=== PATIENT | male | born 1975 | race Caucasian/White ===

== ENCOUNTER 2018-05-07 03:16 | Emergency (ER) | payer OTHER, SELFPAY ==
[2018-05-07 03:17] VITALS: BP 154/94; PULSE 83; RESP 16; TEMP 36.6; O2SAT 94; BMI 29.7
--- NOTE | 2018-05-07 03:45 | EKG12_ITS ---
Test Reason : NUMBNESS/TINGLING Blood Pressure : / mmHG Vent. Rate : 077 BPM Atrial Rate : 077 BPM P-R Int : 146 ms QRS Dur : 094 ms QT Int : 404 ms P-R-T Axes : 056 028 027 degrees QTc Int : 457 ms Normal sinus rhythm Normal ECG Confirmed by KIM WHITTAKER, BALJEET ([id number]), editor newspaper JUANIS MICHAELS ([id number]) on 05/08/2018 4:28:20 PM Referred By: JOHN Confirmed By:BALJEET ALVAREZ MD
--- NOTE | 2018-05-07 03:48 | ED.RN ---
NO OLD EKGS IN MUSE
[2018-05-07 04:09] LABS: Absolute Lymphocyte Count 2.08 X10^3/ul (0.83-4.51); Absolute Neutrophil Count 3.8 X10^3/uL (2.0-7.7); Basophil# 0.03 X10^3/uL; Basophil% 0.5 % (0-1); Eosinophil# 0.12 X10^3/uL; Eosinophils% 1.8 % (0-5); Hematocrit 47.2 % (40-54); Hemoglobin 16.4 g/dl (13.0-16.5); Lymphocyte # 2.08 X10^3/ul (4.0); Mean Corp Hgb Conc 34.7 g/gl (32-36); Mean Corpuscular Hgb 28.6 pg (27.0-32.0); Mean Corpuscular Volume 82.4 fL (80-94); Mean Platelet Vol. 9.4 fl (6.2-12.0); Monocyte% 7.7 % (0-10); Neutrophil # 3.76 X10^3/uL (2.7-7.7); Neutrophil % 57.8 % (47-70); Platelet Count 150 K/mm3 (150-450); RBC Distribution Width CV 13.1 % (11.6-14.6); RBC Distribution Width SD 39.3 fl (35.1-43.9); Red Blood Count 5.73 M/mm3 (4.6-6.2); White Blood Count 6.5 K/mm3 (4.4-11.0)
[2018-05-07 04:10] LABS: POSITIVE COUNT NO; POSITIVE DIFFERENTIAL NO; POSITIVE MORPHOLOGY NO
[2018-05-07] MEDS: 0.9% Normal Saline 1,000 ML 1000 ML IV (04:12)
[2018-05-07] MEDS: Ondansetron 4 MG/2 ML Vial IV (04:12)
[2018-05-07 04:19] LABS: Anion Gap 12 (5-15); BUN 18 mg/dL (7-18); BUN/Creat Ratio 20.4 RATIO (10-20); Calcium,Total 8.8 mg/dL (8.5-10.1); Chloride 105 mmol/L (98-107); Creatinine, Serum 0.88 mg/dL (0.70-1.30); EST Glomerular Filtration Rate 101 mL/min (>60); Est Glom Filt Rate - Afr Amer 122 mL/min (>60); Estimated Creatinine Clearance 124.84 ml/min; Glucose 118 mg/dL (74-106); Potassium 3.6 mmol/L (3.5-5.1); Sodium Level 140 mmol/L (136-145)
--- NOTE | 2018-05-07 04:33 | ED.DCSUM_ITS ---
- ER Visit Summary Date of Service: 05/07/18 Chief Complaint: [] Burning sensation full body History of Present Illness: The patient is a 42 M is a full body sensation of burning and this started just prior to arrival. He had a hard time sleeping in his legs feel achy and he took some ibuprofen and felt burning sensation in his body. He restarted his to traveling yesterday. He was off for 2 months. Prior he was on it for 2 years. He is never had symptoms like this before. Physical Examination: [] Vital signs reviewed General: Well-nourished well-developed Head: Normocephalic atraumatic Eyes: Pupils equal round and reactive to light extraocular movements intact ENT: TMs clear no hemotympanum no trauma Neck: Nontender full range of motion Cardiovascular: Regular rate rhythm no murmurs normal S1-S2 Respiratory: No distress clear to auscultation bilaterally chest nontender Abdomen: Soft nontender nondistended normal bowel sounds no masses Back: Nontender no CVA tenderness Extremities: Nontender active range of motion ?4 extremities no trauma Skin: Normal color no trauma Neuro alert oriented cranial nerves II through XII intact normal strength sensation reflexes Test Results: [] Emergency Department Course and Treatment: [] Given IV fluids and a dose of Zofran for nausea. CBC and chemistries normal except glucose 118. EKG shows sinus at 77 without ischemia. Patient felt much better after IV fluids. At this time I think his symptoms are nonspecific. I do not feel he needs further lab work or imaging. We will follow-up as an outpatient if it recurs. Could be restless legs. Treatment Plan: [] Disposition: [] Impression: [] Diffuse body burning sensation This note was generated with [employer] dictation software. It may contain incorrect words, spelling, and punctuation that were not noted in review of the chart prior to signing ED Disposition - Plan for ED Patient: Chief Complaint: Numb/Ting Referrals: Indy Stewart MD [Primary Care Provider] -
--- NOTE | 2018-05-07 04:33 | ED.DEP ---
ED Disposition - Plan for ED Patient: Disposition: Home or Assisted Living Chief Complaint: Numb/Ting Instructions: ED Paraesthesias Referrals: Indy Stewart MD [Primary Care Provider] -
[2018-05-07 04:48] VITALS: RESP 18
== END 2018-05-07 04:53 | disposition home or self-care (01) ==
PROVIDERS: Emergency Provider Emergency Medicine; Family Provider Family Medicine; PCP Family Medicine
DX: R20.8 Other disturbances of skin sensation (principal); R11.0 Nausea; F32.9 Major depressive disorder, single episode, unspecified; Z79.899 Other long term (current) drug therapy
CPT/HCPCS: 80048; 85025; 93005; 96361; 96374; 99282; J7030; A4216; J2405

== ENCOUNTER → 2020-02-12 09:40 | Outpatient (CLI) | payer OTHER, SELFPAY ==
[2020-02-12 12:43] LABS: AST(SGOT) 51 U/L (15-37); Alanine Aminotransfer ALT/SGPT 86 U/L (16-61); Cholesterol 145 mg/dL (200); High Density Lipoprotein 29 mg/dL; Triglycerides 205 mg/dL; Very Low Density Lipoprotein 41 mg/dL (5-40)
== END ==
PROVIDERS: PCP Family Medicine; Referring Provider Family Medicine; Visit Provider Family Medicine
DX: E78.5 Hyperlipidemia, unspecified (principal)
CPT/HCPCS: 36415; 80061; 84450; 84460

== ENCOUNTER → 2021-04-21 | Outpatient (CLI) | payer OTHER, SELFPAY | END | disposition home or self-care (01) | LOC: LABSPEC 16:48 | PROVIDERS: PCP Family Medicine; Referring Provider Physician Assistant; Visit Provider Physician Assistant | DX: U07.1 COVID-19 (principal) | CPT/HCPCS: 87635; U0005; U0003 ==

== ENCOUNTER 2021-04-22 17:45 | Outpatient (CLI) | payer OTHER, SELFPAY ==
[2021-04-22] MEDS: 0.9% Saline Lock 10 ML Syringe IV (17:47)
[2021-04-22 17:48] VITALS: BP 125/82; PULSE 76; RESP 16; TEMP 36.6; O2SAT 97; BMI 30.3
[2021-04-22 18:00] VITALS: BP 124/79; PULSE 77; RESP 16; TEMP 37.1; O2SAT 97
--- NOTE | 2021-04-22 18:00 | NURSING ---
PT C/O OF FEELING FLUSHED. VS TAKEN. STABLE. RATE DECREASED TO 200CC/HR. FLUSHED FEELING RESOLVED IN 2 MINUTES. PT STATES HE FEELS BETTER AT THE SLOWER RATE.
[2021-04-22 18:35] VITALS: BP 123/81; PULSE 77; RESP 16; TEMP 36.8; O2SAT 99
[2021-04-22 19:26] VITALS: BP 117/77; PULSE 75; RESP 16; TEMP 37.1; O2SAT 100
== END 2021-04-22 19:27 | disposition home or self-care (01) ==
LOC: MS3OUT 17:45 → MS3 17:46
PROVIDERS: PCP Family Medicine; Referring Provider Nurse Practitioner Adult Health; Visit Provider Nurse Practitioner Adult Health
DX: Z23 Encounter for immunization (principal); U07.1 COVID-19
CPT/HCPCS: J7050; M0245; Q0245; A4216

== ENCOUNTER → 2021-12-22 | Outpatient (CLI) | payer OTHER, SELFPAY ==
[2021-12-22 18:45] LABS: AST(SGOT) 27 U/L (15-37); Alanine Aminotransfer ALT/SGPT 50 U/L (16-61); Cholesterol 143 mg/dL (200); High Density Lipoprotein 29 mg/dL; Triglycerides 207 mg/dL; Very Low Density Lipoprotein 41 mg/dL (5-40)
== END | disposition home or self-care (01) ==
LOC: MFPLAB 15:15
PROVIDERS: PCP Family Medicine; Referring Provider Family Medicine; Visit Provider Family Medicine
DX: E78.5 Hyperlipidemia, unspecified (principal)
CPT/HCPCS: 36415; 80061; 84450; 84460

== ENCOUNTER → 2023-03-02 | Outpatient (CLI) | payer OTHER, SELFPAY ==
[2023-03-02 15:21] LABS: Absolute Lymphocyte Count 2.34 X10^3/uL (0.83-4.51); Absolute Neutrophil Count 3.6 X10^3/uL (2.0-7.7); Basophil# 0.06 X10^3/uL; Basophil% 0.9 % (0-1); Eosinophils% 1.5 % (0-5); Hematocrit 47.4 % (40-54); Lymphocyte # 2.34 X10^3/ul (0.83-4.51); Lymphocyte % 34.9 % (19-41); Mean Corp Hgb Conc 33.8 g/dL (32-36); Mean Corpuscular Hgb 28.8 pg (27.0-32.0); Mean Corpuscular Volume 85.3 fL (80-94); Monocyte# 0.59 X10^3/uL; Monocyte% 8.8 % (0-10); NRBC Flagged by Analyzer 0 % (0-5); Neutrophil # 3.59 X10^3/uL (2.7-7.7); Neutrophil % 53.6 % (47-70); Platelet Count 196 K/mm3 (150-450); RBC Distribution Width CV 13.5 % (11.6-14.6); RBC Distribution Width SD 41.8 fl (35.1-43.9); Red Blood Count 5.56 M/mm3 (4.6-6.2); White Blood Count 6.7 K/mm3 (4.4-11.0)
[2023-03-02 15:41] LABS: ALB/GLOB Ratio 1.1 RATIO (0.9-2.4); AST(SGOT) 27 U/L (15-37); Alanine Aminotransfer ALT/SGPT 57 U/L (16-61); Albumin, Serum 4.2 g/dL (3.2-5.0); Alkaline Phosphatase 61 U/L (45-117); Anion Gap 5 (5-15); BUN 17 mg/dL (7-18); BUN/Creat Ratio 17.6 RATIO (10-20); Calcium,Total 9.4 mg/dL (8.5-10.1); Chloride 107 mmol/L (98-107); Creatinine, Serum 0.97 mg/dL (0.70-1.30); EST Glomerular Filtration Rate 89 mL/min (>60); Est Glom Filt Rate - Afr Amer 107 mL/min (>60); Globulin 3.7 g/dL (2.2-4.2); Glucose 102 mg/dL (74-106); Potassium 4.1 mmol/L (3.5-5.1); Protein, Total 7.9 g/dL (6.4-8.2); Sodium Level 140 mmol/L (136-145)
== END | disposition home or self-care (01) ==
LOC: MTLAB 12:37
PROVIDERS: PCP Family Medicine; Visit Provider Family Medicine
DX: R10.9 Unspecified abdominal pain (principal)
CPT/HCPCS: 36415; 80053; 85025

== ENCOUNTER → 2023-03-31 | Outpatient (CLI) | payer OTHER, SELFPAY ==
--- NOTE | 2023-03-31 10:53 | US_ITS ---
STUDY: ABDOMINAL ULTRASOUND REASON FOR EXAM: Male, 47 years old. Abdominal pain. TECHNIQUE: Transabdominal ultrasound was performed with real-time and static maria scale imaging. TECHNICAL QUALITY: Adequate. COMPARISON: None. FINDINGS: Liver: The liver measures 9.9 cm. Increased echogenicity of the liver parenchyma due to fatty infiltration. The bile ducts are within normal limits. There is hepatic color flow. The direction of portal flow is hepatopetal. Small hypoechoic lesions in the right thyroid lobe adjacent the gallbladder fossa. They measure 3.4 x 1.4 x 1.7 cm and 2.7 x 2.7 x 1.8 cm. Gallbladder: Normal distended gallbladder. The gallbladder wall measures 0.9 mm. There is a negative sonographic Vivas''s sign. There is no pericholecystic fluid. Minimal GB sludge but no gallstones. Common Bile Duct (C.B.D.): The common bile duct measures 6.4 mm. This tapers to 3.9 cm in diameter. Pancreas: Limited visualization due to overlying bowel gas. Normal size of the visualized portions of pancreas. Increased echogenicity in the visualized portions of the pancreas. No suspicious pancreatic mass or cyst in the visualized portions of the pancreas. The pancreatic duct is not dilated. Spleen: Normal size of the spleen. The spleen measures 12.5 x 5.1 x 5.3 cm. Right Kidney: Normal size of the right kidney. The right kidney measures 13 x 6.4 x 5.7 cm. Normal renal cortex. The right cortex measures 1.2 cm. Small anechoic cyst in the anterior right middle renal parenchyma measuring 1.4 x 1.2 x 0.8 cm. There is no right hydronephrosis. Left Kidney: Normal size of the left kidney. The left kidney measures 12.4 x 5.3 x 4.7 cm. Normal renal cortex. The left cortex measures 1.1 cm. There is no demonstrated renal mass or cyst. There is no left hydronephrosis. Aorta: Proximal aorta is 2.3 x 1.8 cm. Mid aorta is 2.2 x 2 cm. Distal aorta is 1.8 x 1.7 cm. No abdominal aortic aneurysm. I.V.C.: The IVC is patent. There is no ascites. US/Abdomen Complete IMPRESSION: 1. 2 hypoechoic lesions in the right hepatic lobe adjacent the gallbladder measuring 3.4 x 1.4 x 1.7 cm and 2.7 x 2.7 x 1.8 cm. Etiology is unknown at this time. Three-phase CT of the liver will be helpful for further clarification. 2. Small right renal cyst measuring 1.4 x 1.2 x 0.8 cm. 3. Diffuse hepatic steatosis. Electronically Signed: Emmanuel Mace MD at 14:47 EDT ,
== END | disposition home or self-care (01) ==
LOC: US 10:49
PROVIDERS: PCP Family Medicine; Referring Provider Family Medicine; Visit Provider Family Medicine
DX: R10.9 Unspecified abdominal pain (principal)
CPT/HCPCS: 76700

== ENCOUNTER → 2023-04-20 | Outpatient (CLI) | payer OTHER, SELFPAY ==
--- NOTE | 2023-04-20 08:10 | CT_ITS ---
STUDY: CT ABDOMEN WITH AND WITHOUT CONTRAST REASON FOR EXAM: Male, 47 years old. Liver mass seen on recent ultrasound of the right upper quadrant. RADIATION DOSAGE (If Supplied By Facility): CTDIvol = ( 23.55 ) mGy, DLP = ( 3311.81 ) mGycm TECHNIQUE: Transaxial images were obtained pre and post I.V. administration of IV 100mL [id number]-[id number], and oral contrast. Sagittal and coronal images were reconstructed. Individualized dose optimization techniques were used for this CT. COMPARISON: None. FINDINGS: The visualized lung bases are unremarkable. The visualized portions of the heart are within normal limits. There is decreased attenuation of the liver consistent with steatosis. No focal lesion is seen. The findings on the sonogram most likely represent focal areas of fatty sparing. Normal gallbladder and extrahepatic biliary system. Normal spleen. Normal pancreas. Normal bilateral adrenal glands. 1.4 x 1.2 cm cyst in the right kidney. Normal left kidney. Normal visualized stomach. Normal small intestine. Normal colon. The appendix is visualized and appears normal. Normal abdominal aorta. Normal inferior vena cava. Normal retroperitoneum. Minimal increased markings in the mesenteric fat at the level of the root of mesentery. This is a nonspecific finding. There is a small umbilical hernia containing fat. Normal osseous structures. CT/Abdomen W/WO IV Contrast IMPRESSION: Findings diffuse fatty infiltration of the liver with focal areas of fatty sparing most likely corresponding to the ultrasound findings. Electronically Signed: Kaz Bland MD at 15:07 EST ,
== END | disposition home or self-care (01) ==
PROVIDERS: PCP Family Medicine; Referring Provider Family Medicine; Visit Provider Family Medicine
DX: R16.0 Hepatomegaly, not elsewhere classified (principal)
CPT/HCPCS: 74170; Q9967

== ENCOUNTER 2023-06-21 09:47 | Emergency (ER) | payer OTHER, SELFPAY ==
[2023-06-21 09:48] VITALS: BP 149/92; PULSE 83; RESP 18; TEMP 36.1; O2SAT 96; BMI 32.8
[2023-06-21 10:38] LABS: Absolute Lymphocyte Count 1.27 X10^3/uL (0.83-4.51); Absolute Neutrophil Count 8.5 X10^3/uL (2.0-7.7); Basophil# 0.06 X10^3/uL; Basophil% 0.6 % (0-1); Eosinophil# 0.07 X10^3/uL; Eosinophils% 0.6 % (0-5); Hematocrit 50.8 % (40-54); Hemoglobin 16.9 g/dL (13.0-16.5); Lymphocyte # 1.27 X10^3/ul (0.83-4.51); Lymphocyte % 11.8 % (19-41); Mean Corp Hgb Conc 33.3 g/dL (32-36); Mean Corpuscular Hgb 28.3 pg (27.0-32.0); Mean Corpuscular Volume 84.9 fL (80-94); Mean Platelet Vol. 9.6 fl (6.2-12.0); Monocyte# 0.86 X10^3/uL; NRBC Flagged by Analyzer 0 % (0-5); Neutrophil # 8.51 X10^3/uL (2.7-7.7); Neutrophil % 78.7 % (47-70); Platelet Count 183 K/mm3 (150-450); RBC Distribution Width CV 13.2 % (11.6-14.6); RBC Distribution Width SD 40.9 fl (35.1-43.9); Red Blood Count 5.98 M/mm3 (4.6-6.2); White Blood Count 10.8 K/mm3 (4.4-11.0)
[2023-06-21 11:20] LABS: ALB/GLOB Ratio 1.2 RATIO (0.9-2.4); AST(SGOT) 38 U/L (15-37); Alanine Aminotransfer ALT/SGPT 71 U/L (16-61); Albumin, Serum 4.5 g/dL (3.2-5.0); Alkaline Phosphatase 64 U/L (45-117); Anion Gap 4 (5-15); BUN 23 mg/dL (7-18); BUN/Creat Ratio 17.3 RATIO (10-20); Calcium,Total 9.9 mg/dL (8.5-10.1); Chloride 109 mmol/L (98-107); Creatinine, Serum 1.33 mg/dL (0.70-1.30); EST Glomerular Filtration Rate 61 mL/min (>60); Est Glom Filt Rate - Afr Amer 74 mL/min (>60); Estimated Creatinine Clearance 91.44 ml/min; Globulin 3.8 g/dL (2.2-4.2); Glucose 131 mg/dL (74-106); Potassium 4.4 mmol/L (3.5-5.1); Protein, Total 8.3 g/dL (6.4-8.2); Sodium Level 140 mmol/L (136-145)
--- NOTE | 2023-06-21 11:58 | CT_ITS ---
STUDY: CT ABDOMEN AND PELVIS WITHOUT CONTRAST REASON FOR EXAM: Male, 47 years old. Left flank pain and vomiting. RADIATION DOSAGE (If Supplied By Facility): CTDIvol = ( 19.91 ) mGy, DLP = ( 1029.90 ) mGycm TECHNIQUE: Transaxial images were obtained from the dome of the diaphragm to the symphysis pubis without oral contrast, and without intravenous contrast. Sagittal and coronal images were reconstructed. Individualized dose optimization techniques were used for this CT. COMPARISON: Comparison is made with prior study dated April 20, 2023. FINDINGS: The visualized lung bases are unremarkable. The visualized portions of the heart are within normal limits. There is decreased attenuation of the liver consistent with steatosis. Normal gallbladder and extrahepatic biliary system. Normal spleen. Normal pancreas. Normal bilateral adrenal glands. Normal right kidney. Normal left kidney. There is a small hiatal hernia. Normal small intestine. Scattered sigmoid diverticula. The appendix is visualized and appears normal. Normal abdominal aorta. Normal inferior vena cava. Normal retroperitoneum. Stable nonspecific increased markings in the mesenteric fat at the root of the mesentery. The bladder is empty at this time. There is a small umbilical hernia containing fat. Right inguinal hernia containing fat. Normal osseous structures. CT/Abdomen/Pelvis without Cont IMPRESSION: Fatty infiltration of the liver. Electronically Signed: Kaz Bland MD at 13:03 EST ,
--- NOTE | 2023-06-21 11:59 | EX.ED.DYSGE1 ---
HPI History of Present Illness Chief Complaint: Abd Pain Detail of Chief Complaint: Left flank pain Informant: patient Narrative Narrative: Patient presents to the emergency department with left-sided flank pain that started around 6 AM today. Pain was severe. He vomited once. Pain radiates towards his left groin. He thinks he had similar pains in the past and had a CT scan a couple months ago that just showed a fatty liver. Patient denies urinary symptoms. Denies fever. Denies diarrhea. Denies blood in stool or black tarry stool. PFSH PFSH Medical History no medical history Home Medications sertraline 50 mg tablet 100 mg PO DAILY 12/01/14 [History Last Taken Unknown] rosuvastatin 5 mg tablet 5 mg PO DAILY 04/22/21 [History Last Taken Unknown] hydrocodone-acetaminophen 5-325mg 5mg-325mg 1 tab PO Q4H PRN PRN Pain 2 days #10 TABLETS 06/21/23 [Rx Last Taken Unknown] Allergy/AdvReac Type Severity Reaction Status Date / Time No Known Allergies Allergy Verified 06/21/23 12:21 Social History Smoking Status: Never smoker ROS ROS ED Review of Systems ROS Unobtainable: other Constitutional Constitutional ED: Reports lethargy; Denies chills, fever(s), sweats or weight loss Eyes Eyes: Denies blurry vision, change in vision or diplopia ENT ENT ED: Denies rhinorrhea or sore throat Cardiovascular Cardiovascular: Denies chest pain, orthopnea or racing heartbeat Respiratory/Chest Respiratory/Chest: Denies cough, dyspnea, dyspnea on exertion, orthopnea or sputum Gastrointestinal Gastrointestinal: Reports abdominal pain, nausea and vomiting; Denies diarrhea Genitourinary Genitourinary ED: Denies dysuria, hematuria or urinary frequency Musculoskeletal Musculoskeletal: Reports back pain; Denies arthralgias, myalgias or neck pain Integumentary Denies abscess, Abrasions or rash Neurologic Neurologic: Denies headache(s) or weakness Psychiatric Psychiatric: Denies anxiety, depression or suicidal thoughts Endocrine Endocrinology: Denies polydipsia, polyphagia or polyuria Hematologic/Lymphatic Hematologic/Lymphatic: Denies easy bleeding, easy bruising or lymphadenopathy Allergic/Immunologic Allergic/Immunologic ED: Denies mouth swelling, tongue swelling or urticaria EXAM Physical Exam Const Vital Signs: 06/21/23 09:48 Temperature 96.9 F L Temperature Source Temporal Pulse Rate 83 Respiratory Rate 18 Blood Pressure 149/92 H Blood Pressure Mean 111 Pulse Ox 96 Oxygen Delivery Method Room Air Positive well nourished and well developed General Appearance ED: well developed and NAD HEENT Reports TM's clear and moist mucous membranes normocephalic and atraumatic; Negative for trauma or tenderness Tympanic Membrane ED: Yes TM's clear Eyes PERRL and EOMs intact bilaterally General Eye ED: Negative for pale conjunctiva or scleral icterus Neck no lymphadenopathy, supple and no JVD General: Negative for tenderness Chest Wall inspection of chest normal and palpation of chest normal Chest: Negative for tenderness Resp normal respiratory effort and clear to auscultation bilaterally Effort and Inspection: Negative for respiratory distress or pain with movement Auscultation: Negative for rhonchi, wheezes or diminished lung sounds Cardio regular rate, regular rhythm, S1 normal heart sound, S2 normal heart sound and no murmurs Peripheral Pulses: pulses 2+ throughout GI normal to inspection, nondistended, normoactive bowel sounds, soft to palpation, non-distended and no masses GI Narrative: Tenderness palpation over left lower quadrant with some mild guarding. There is no rebound, rigidity, or peritoneal signs. He has some mild CVA tenderness on the left. Back/Spine no thoracic nor lumbar tenderness Extremity normal to inspection General Extremety ED: Negative for edema General Extremity: Negative for edema Neuro oriented x3, CN's II-XII intact bilaterally, no sensory deficits noted and gait normal Sensorium / Orientation: awake, alert, oriented to person, oriented to place and oriented to time Motor Exam: strength 5/5 throughout and strength abnormal Psych mental status grossly normal Skin no rashes or lesions noted and no wounds MDM MDM MDM Narrative Medical decision making narrative: Patient presents with left lower abdomen pain that has had for several months off-and-on but this was the most severe episode lasting the longest time. In the differential would be diverticulitis versus kidney stone versus UTI versus other acute process such as bowel perforation. IV line established. He was medicated with morphine as well as Toradol and Zofran and he had good pain relief with that. CBC with differential obtained showed a white count of 10.8 with hemoglobin of 16.9 and platelet count of 183. Chemistries unremarkable. BUN 23 and creatinine 1.33. Patient has slightly elevated LFTs which are chronic. Urinalysis was unremarkable. Patient had a CT scan of the abdomen pelvis without contrast which showed no acute disease process. No evidence of kidney stone or diverticulitis. At this point etiology of patient's abdominal pain unclear. Will write a prescription for a few [place] for pain. Will refer to general surgery for follow-up. He may need further investigation such as possibly colonoscopy. He denies family history of inflammatory bowel disease or colon cancer. Lab Data Attestation: I reviewed the patient's lab results. Labs: Laboratory Results - last 24 hr 06/21/23 06/21/23 10:31 12:15 WBC 10.8 RBC 5.98 Hgb 16.9 H Hct 50.8 MCV 84.9 MCH 28.3 MCHC 33.3 RDW Std Deviation 40.9 RDW Coeff of Karthik 13.2 Plt Count 183 MPV 9.6 Immature Gran % (Auto) 0.300 Neut % (Auto) 78.7 H Lymph % (Auto) 11.8 L Dyer % (Auto) 8.0 Eos % (Auto) 0.6 Baso % (Auto) 0.6 Absolute Neuts (auto) 8.5 H Absolute Lymphs (auto) 1.27 Nucleated RBC % 0 Sodium 140 Potassium 4.4 Chloride 109 H Carbon Dioxide 27.0 Anion Gap 4 L BUN 23 H Creatinine 1.33 H Estim Creat Clear Calc 91.44 Est GFR (MDRD) Af Amer 74 Est GFR (MDRD) Non-Af 61 BUN/Creatinine Ratio 17.3 Glucose 131 H Calcium 9.9 Total Bilirubin 0.60 AST 38 H ALT 71 H Alkaline Phosphatase 64 Total Protein 8.3 H Albumin 4.5 Globulin 3.8 Albumin/Globulin Ratio 1.2 Urine Color Yellow Urine Clarity Cloudy Urine pH 6.0 Ur Specific [place] 1.020 Urine Protein 30 H Urine Glucose (UA) Normal Urine Ketones Negative Urine Occult Blood 50 H Urine Nitrite Negative Urine Bilirubin Negative Urine Urobilinogen Normal Ur Leukocyte Esterase Negative Urine RBC 0-5 SEEN Urine WBC 0-5 SEEN Ur Squamous Epith Cells 0-5 SEEN Urine Bacteria RARE Urine Mucus 3+ Radiography Diagnostic Testing: Clinical Impression(s) from Imaging Studies Abdomen/Pelvis CT 06/21/23 11:58 IMPRESSION: Fatty infiltration of the liver. Electronically Signed: Kaz Bland MD at 13:03 EST , Discharge Plan Triage Chief Complaint: Abd Pain ED Provider: Jessica Santana Dx/Rx/DC Orders Clinical Impression: Abdominal pain Instructions: ED Abdominal Pain Unkn Cause Male... Prescriptions: New hydrocodone-acetaminophen [hydrocodone-acetaminophen] 5-325 mg tablet 1 tab PO Q4H PRN PRN (Reason: Pain) 2 Days Qty: 10 0RF No Action sertraline 50 MG tablet 100 mg PO DAILY rosuvastatin 5 mg Tablet 5 mg PO DAILY Primary Care Provider: Indy Stewart Referrals: Indy Stewart MD [Primary Care Provider] - Emery Breen MD [Med Staff - Active Staff] - 3-5 Days Disposition Disposition: Home, Self Care Discharge Date/Time: 06/21/23 14:00
[2023-06-21] MEDS: Ondansetron 4 MG/2 ML Vial IV (12:07)
[2023-06-21] MEDS: 0.9% Normal Saline (1000mL) 1,000 ML 150 ML IV (12:07)
[2023-06-21] MEDS: Morphine 4 MG/ML Syringe IV (12:07)
[2023-06-21] MEDS: Ketorolac 30 MG/ML Syringe IV (12:08)
[2023-06-21 12:29] LABS: Color, Urine Yellow (Yellow); Glucose, Dipstick Normal (Normal); Ketone-Dipstick Negative (Negative); Leukocyte Esterase-Dipstick Negative /ul (Negative); Nitrite-Dipstick Negative (Negative); Occult Blood-Urine 50 /ul (Negative); Protein-Dipstick 30 mg/dl (Negative); Urine Bilirubin Dipstick Negative (Negative); Urine Clarity Cloudy (Clear); Urine Urobilinogen Normal (Normal)
[2023-06-21 12:35] LABS: Red Blood Cells-Urine 0-5 SEEN /hpf (0-5); White Blood Cells 0-5 SEEN /hpf (0-5)
[2023-06-21 12:36] LABS: Bacteria RARE /hpf (None Seen); Mucous, Urine 3+ /hpf (<or=2+); Squamous Epithelial Cells - UA 0-5 SEEN /hpf (0-5)
== END 2023-06-21 14:00 | disposition home or self-care (01) ==
PROVIDERS: Emergency Provider Emergency Medicine; PCP Family Medicine; Visit Provider Emergency Medicine
DX: R10.9 Unspecified abdominal pain (principal); R11.10 Vomiting, unspecified
CPT/HCPCS: 74176; 80053; 81001; 85025; 96361; 96374; 96375; 99283; J7030; A4216; J2405

== ENCOUNTER 2023-08-11 07:27 | Day surgery (SDC) | payer OTHER, SELFPAY ==
[2023-08-11 07:56] VITALS: BP 125/91; PULSE 82; RESP 17; TEMP 36.4; O2SAT 97; BMI 32.6
[2023-08-11] MEDS: Lactated Ringers 1,000 ML 15 ML IV (08:00)
--- NOTE | 2023-08-11 08:28 | HP.PCM_ITS ---
History and Physical Date of Admission: 08/11/23 HPI: Patient is a 47-year-old male who presents for follow-up of a recent ER visit on 06/21/2023 during which he was evaluated for a primary complaint of left flank pain . This finding was first noticed by patient approximately 4 months ago, however, he states that it normally resides at an intensity of 1-2 out of 10. He shares that in the last 4 months approximately 3 times it reached a similar intensity to that which he felt on the day of his ER presentation, however, that day it persisted longer than it had previously and did not respond to his usual treatment with a heating pad. He reports that he did feel some nausea that day, but questions whether this is simply due to the intensity of his pain. He has not been able to connect this to any dietary triggers or any time of day as far as its onset. As part of his ER workup he underwent CT imaging of the abdomen pelvis which showed a fat?containing umbilical hernia as well as a right?inguinal hernia. Patient is not able to recall how this occurred and denies any awareness of these findings. Mr. Denney states his only other medical concerns include some high cholesterol and some reflux disease. He states that he was previously on omeprazole for a month but that this was largely ineffective for his symptoms. He shares that the symptoms are primarily filled at night and do not occur but just a few times per month. Patient denies any history of changes to his bowel movements. He confirms that he experiences bowel movements 1-2 times per day without significant straining. He also denies any recent bleeding or dark stools. He has no prior history of colonoscopy. Mr. Blank has no family history of colon cancer, inflammatory bowel disease, or diverticulitis. Patient has no personal history of smoking. He also has no personal history of recurrent cutaneous infections including staph. Pertinent surgical history includes: No abdominal surgery ROS General General: No weight change, appetite, fatigue, colon cancer, breast cancer or weakness HEENT HEENT: No difficulty swallowing, eye injury, eye surgery, swollen glands or hoarseness Endo Endocrine: No thyroid disease, diabetes mellitus, thyroid cancer, Hair loss, heat intolerance or cold intolerance Skin Skin: No rash or changing moles Musc Musculoskeletal: No back problems, arthritis, rheumatoid arthritis, gout or joint pain Cardio Cardiovascular: No murmur, pacemaker, heart disease, atrial fibrillation, high blood pressure, heart attack, heart stent, palpitations, shortness of breat with exertion or chest pain Psych Psychiatric: No depression, anxiety or hearing voices Resp Respiratory: No shortness of breath, No sleep apnea, No cough, No COPD, No asthma, No emphysema and No wheezing Gastro Gastrointestinal: Yes abdominal pain, Yes nausea or vomiting, No diarrhea, No constipation, No blood in stool, Yes acid reflux, No hemorrhoids, No ulcers, No gallbladder problem and No black,tarry stools Ubaldo Hematologic: No blood thinners, No blood disorders, No bleeding, No anemia and No blood clots Neuro Neurologic: No system reviewed and no additional complaints, except as documented, No as per HPI, No abnormal gait, No abnormal hearing, No abnormal movements, No abnormal speech, No behavioral changes, No burning sensations, No confusion, No convulsions, No disequilibrium, No dizziness, No localized weakness, No frequent falls, No headache(s), No lack of coordination, No loss of vision, No memory loss, No numbness, No other visual disturbances, No radicular pain, No restless legs, No sensory deficit, No syncope, No tingling, No tremor(s), No weakness and No other Exam Const General: cooperative, healthy appearing, comfortable and no acute distress Nutritional Appearance: obese Orientation: alert, awake and oriented x3 Resp Effort & Inspection: normal respiratory effort GI Other: Obese, hirsute, nondistended, soft, nontender to palpation x 4 quadrants. Umbilicus is palpated and there is a shallow hernia defect containing fat that is nontender with palpation. Patient denies any tenderness with palpation over the groin areas while supine. Other: Testicles are present bilaterally within the scrotum. No hernia defect is palpable on the left. However, on the right I believe identify a indirect defect when patient is asked to cough and he has significantly more tenderness with exam of the side than left side. Assessment and Plan Assessment and Plan (1) Left flank pain: Status: Acute Comment: This is a 47-year-old male, with minimal past medical history, who presents for ER follow-up after a primary complaint of left flank pain. His workup in the emergency department did not reveal any proximal causes to his discomfort. In fact, he presents with findings of umbilical hernia and right inguinal hernia which both appear to be incidental findings. I did discuss with him that his CT imaging seems to suggest possible diverticulosis of the sigmoid colon and being that he has not previously undergone screening colonoscopy, I recommended he consider colonoscopy as a means of further investigating his left flank pain. He is receptive of this information and does wish to proceed as described. Plan: Plan will be to complete colonoscopy on first mutually agreeable date under local MAC. Pre-procedure prep discussed and paper instructions provided. Patient is also made aware that he will need to have a medical delivery driver with him the day of the procedure. (2) Umbilical hernia: Status: Acute Comment: Patient with rather incidental finding of umbilical hernia on recent CT imaging for above workup. Appears to be completely asymptomatic. He is nontender on exam. He does seem to have some element of chronically?incarcerated fat within the hernia. Assured that this is actually a protective finding against possible bowel involvement. Still, I have recommended he consider operative repair as I would be concerned this hernia would only grow in size and potentially be a greater risk for bowel involvement in the future. Plan: Watchful waiting for now, however, I have urged patient to consider possible operative repair with mesh given the size of the defect (approximately 2.5 cm) into his body habitus (3) Right inguinal hernia: Status: Acute Comment: Additional probable incidental finding of right inguinal hernia with workup for the above left flank pain. This is highly unlikely to explain patient's left flank pain. On exam this feels to be a indirect defect that is small in size. Patient appears to be asymptomatic from this finding. I have discussed with him the implications of the [facility] study and its follow-up report that concluded most patients will ultimately require operative intervention on the account of progressive pain symptoms. Thus, I have recommended that Mr. Denney continue to pursue an explanation for his left flank pain, but at some point plan for operative repair of this hernia as well as umbilical hernia. I have discussed with him that postoperative restrictions include no weight lifting more than 10 pounds for 5 weeks. All other questions were answered to his satisfaction and he confirms that he will give this some thought. Plan: Watchful waiting for now, but patient encouraged to consider offer for operative repair once he is able to electively arrange his life to accommodate postoperative restrictions I have examined the patient and the H&P has been reviewed. There are no clinical changes since date of exam. Mr. Denney denies any further left lower quadrant abdominal discomfort. He confirms that he completed a prep in anticipation of today's procedure and that his output is both now clear and translucent. He denies any present abdominal pain on exam. He confirms that we are scheduled for a second intervention date later this month to repair a couple of hernias discussed in greater detail above. He denies any questions regarding today's procedure or those to come at his later operative date. Proceed to endoscopy [facility] for diagnostic colonoscopy now.
--- NOTE | 2023-08-11 08:30 | COLBX_PTH ---
PATHOLOGY RESULTS PATIENT: TERRANCE CHRISTIANSEN LOC: EN U#:[id number] AGE/SX: 47/M ROOM: RE08/11/[address]: Dr. Emery Breen MD : 1975 BED: DIS: 08/11/2023 SPEC #: [id number] RECD: 08/11/23 11:14 STATUS: NUZHAT COTTRELL #: [id number] AYANNA: 08/11/23 08:[address]: Emery Breen DEPT: SURGICAL PATHOLOGY RECD BY: Concepción Lam ENTERED: 08/11/23 11:14 SP TYPE: COLON BX OTHR DR: Dr. Indy Stewart MD Tissues: Sigmoid colon biopsy Rectum, NOS Procedures: Surgery Specimen Level IV HEADER OPERATION: Colonoscopy PRE-OP DIAGNOSIS: Left flank pain, umbilical hernia, right inguinal hernia TISSUE SUBMITTED: A - Sigmoid mucosa biopsy, B - Rectal mucosa biopsy MICROSCOPIC DIAGNOSIS A. Sigmoid colon, biopsy: Colonic mucosa with hyperplastic change. B. Rectal mucosa, biopsy: No pathologic change. AM:marcus 08/14/2023 COMMENT Case has been reviewed in consultation with Dr. Márquez who concurs with the above diagnosis. IDC:SJ MICROSCOPIC DESCRIPTION Slides are reviewed. GROSS DESCRIPTION A - Received in fixative is one container labeled with the patient's name and designated sigmoid mucosa biopsy. The specimen consists of two irregular fragments of light echeverria soft tissue that in aggregate measure 0.5 x 0.3 x 0.1 cm. The specimen is totally submitted in one cassette. B - Received in fixative is one container labeled with the patient's name and designated rectal mucosa biopsy. The specimen consists of one irregular fragment of light echeverria soft tissue that measures 0.5 x 0.3 x 0.1 cm. The specimen is totally submitted in one cassette. / AM:marcus 08/11/2023 TC:5 CPT: 93161 x2
[2023-08-11 09:20] VITALS: BP 125/91; BP 97/64; PULSE 64; RESP 16; TEMP 36.9; O2SAT 96
[2023-08-11 09:25] VITALS: BP 125/91; BP 97/59; PULSE 61; RESP 16; O2SAT 96
--- NOTE | 2023-08-11 09:25 | OP.CCLET_ITS ---
08/11/2023 Indy Stewart [address] [place] [address] Re : Colonoscopy procedure for Nakul Denney Dear Dr. Stewart This procedure was performed on Friday, August 11, 2023. My impressions and recommendations are as follows: Impressions : - Pseudopolyps in the rectum, in the recto-sigmoid colon and in the sigmoid colon. Biopsied. - Internal hemorrhoids. No specimens collected. - The examination was otherwise normal. Recommendations : - Discharge patient to home (via wheelchair). - Resume previous diet today. - Continue present medications. - Await pathology results. - Telephone my office for pathology results in 1 week. - Repeat colonoscopy after studies are complete for surveillance based on pathology results. My findings are described in the full procedure note, which is enclosed. If I can be of further assistance, please feel free to contact me at Doctor phone number(s): , Work: . Sincerely, Emery Breen MD 08/11/2023 9:25:15 AM This report has been signed electronically.
--- NOTE | 2023-08-11 09:25 | OP.COLON_ITS ---
Patient Name: Nakul Denney Procedure Date: 08/11/2023 8:25 AM Date of : 1975 Age: 47 Procedure: Colonoscopy Indications: Abdominal pain in the left lower quadrant Providers: Emery Breen MD Referring MD: Indy Stewart Medicines: See the Anesthesia note for documentation of the administered medications Patient Profile: Last Colonoscopy: none. The patient's first colonoscopy is today. Complications: No immediate complications. Estimated blood loss: Minimal. Procedure: Pre-Anesthesia Assessment: - The heart rate, respiratory rate, oxygen saturations, blood pressure, adequacy of pulmonary ventilation, and response to care were monitored throughout the procedure. After I obtained informed consent, the scope was passed under direct vision. Throughout the procedure, the patient's blood pressure, pulse, and oxygen saturations were monitored continuously. The Colonoscope was introduced through the anus and advanced to the cecum, identified by palpation. The colonoscopy was somewhat difficult due to significant looping. Successful completion of the procedure was aided by changing the patient to a supine position, using manual pressure, withdrawing and reinserting the scope and straightening and shortening the scope to obtain bowel loop reduction. Scope In: 8:34:32 AM Scope Withdrawal Time 0 hours 18 minutes 9 seconds Scope Out: 9:15:59 AM Total Procedure Duration Time 0 hours 41 minutes 27 seconds Findings: The perianal and digital rectal examinations were normal. Pertinent negatives include no palpable rectal lesions. Localized pseudopolyps were found in the rectum, in the recto-sigmoid colon and in the sigmoid colon. Biopsies were taken with a cold forceps for histology. Estimated blood loss was minimal. Internal hemorrhoids were found during retroflexion. The hemorrhoids were Grade I (internal hemorrhoids that do not prolapse). No biopsies or other specimens were collected for this exam. The exam was otherwise without abnormality. Impression: - Pseudopolyps in the rectum, in the recto-sigmoid colon and in the sigmoid colon. Biopsied. - Internal hemorrhoids. No specimens collected. - The examination was otherwise normal. Recommendation: - Discharge patient to home (via wheelchair). - Resume previous diet today. - Continue present medications. - Await pathology results. - Telephone my office for pathology results in 1 week. - Repeat colonoscopy after studies are complete for surveillance based on pathology results. Procedure Code(s): --- Professional --- 99233, Colonoscopy, flexible; with biopsy, single or multiple Diagnosis Code(s): --- Professional --- K51.40, Inflammatory polyps of colon without complications K64.0, First degree hemorrhoids R10.32, Left lower quadrant pain CPT copyright 2021 [employer]. All rights reserved. The codes documented in this report are preliminary and upon catalogue maker review may be revised to meet current compliance requirements. Emery Breen MD 08/11/2023 9:25:15 AM This report has been signed electronically. Number of Addenda: 0 Note Initiated On: 08/11/2023 8:25 AM
[2023-08-11 09:30] VITALS: BP 103/73; BP 125/91; PULSE 59; RESP 16; O2SAT 96
[2023-08-11 09:35] VITALS: BP 102/72; BP 125/91; PULSE 57; RESP 16; TEMP 36.6; O2SAT 96
[2023-08-11 09:52] VITALS: BP 125/91
== END 2023-08-11 10:05 | disposition home or self-care (01) ==
LOC: EN 07:30 → AC 07:30
PROVIDERS: PCP Family Medicine; Referring Provider Family Medicine; Visit Provider Surgery
PROC: 0DJD8ZZ Inspection of Lower Intestinal Tract, Via Natural or Artificial Opening Endoscopic (ICD-10-PCS; CPT 45378; principal; 2023-08-11 08:25)
DX: K51.40 Inflammatory polyps of colon without complications (principal); K64.0 First degree hemorrhoids; R10.32 Left lower quadrant pain
CPT/HCPCS: 45380; 88305; J7120; J2405

== ENCOUNTER 2023-09-04 09:33 | Day surgery (SDC) | payer OTHER, SELFPAY ==
--- NOTE | 2023-08-30 08:08 | EKG12_ITS ---
Test Reason : PRE-OP Blood Pressure : / mmHG Vent. Rate : 077 BPM Atrial Rate : 077 BPM P-R Int : 138 ms QRS Dur : 092 ms QT Int : 416 ms P-R-T Axes : 060 060 071 degrees QTc Int : 470 ms Normal sinus rhythm Normal ECG Confirmed by KIM WHITTAKER, BALJEET ([id number]), editorial assistant ALDO DUNCAN ([id number]) on 08/30/2023 1:05:29 PM Referred By: Emery Breen Confirmed By:BALJEET ALVAREZ MD
[2023-09-04] VITALS (15 sets, daily range): BP systolic 116–144; BP diastolic 75–94; PULSE 80–99; RESP 16–18; TEMP 36.4–37.1; O2SAT 89–97; BMI 33.1
[2023-09-04] MEDS: Lactated Ringers 1,000 ML 15 ML IV (10:11)
--- NOTE | 2023-09-04 10:57 | PCM.HP.BLA ---
History and Physical Date of Admission: 09/04/23 Date of Service: 07/03/23 MR#: [id number] Acct: [id number] Name: TERRANCE DENNEY Rep #: [id number] : 1975 Provider: Dr. Emery Breen MD Age/Sex: 47/M Location: [facility] Status: Signed Intake Vital Signs 06/21/2408:48 07/03/2414:09 Height 6 ft 1 in 6 ft 1 in Weight: 253 lb BMI 33.3 BP 144/83 H Blood Pressure Location Rt brachial Position Sitting Respiration 17 Pulse 80 Pulse Source Monitor Pulse Oximetry (%) 96 Oxygen Delivery Method room air Intake Visit Reasons: ED-UMBILICAL/INGUINAL HERNIA Chief Complaint: ED- hernias Allergies No Known Allergies Allergy (Verified 07/03/23 15:22) Medications sertraline 50 mg tablet 100 mg PO DAILY 12/01/14 [History Confirmed 07/03/23] rosuvastatin 5 mg tablet 5 mg PO DAILY 04/22/21 [History Confirmed 07/03/23] hydrocodone-acetaminophen 5-325mg 5mg-325mg 1 tab PO Q4H PRN PRN Pain 2 days #10 TABLETS 06/21/23 [Rx Confirmed 07/03/23] PFSH Family History (Updated 07/03/23 @ 15:08 by Sofia Medrano) Father Diabetes Heart disease Social History (Updated 07/03/23 @ 15:08 by Sofia Medrano) Smoking Status: Never smoker alcohol intake: never HPI HPI HPI: Patient is a 47-year-old male who presents for follow-up of a recent ER visit on 06/21/2023 during which he was evaluated for a primary complaint of left flank pain. This finding was first noticed by patient approximately 4 months ago, however, he states that it normally resides at an intensity of 1-2 out of 10. He shares that in the last 4 months approximately 3 times it reached a similar intensity to that which he felt on the day of his ER presentation, however, that day it persisted longer than it had previously and did not respond to his usual treatment with a heating pad. He reports that he did feel some nausea that day, but questions whether this is simply due to the intensity of his pain. He has not been able to connect this to any dietary triggers or any time of day as far as its onset. As part of his ER workup he underwent CT imaging of the abdomen pelvis which showed a fat?containing umbilical hernia as well as a right?inguinal hernia. Patient is not able to recall how this occurred and denies any awareness of these findings. Mr. Denney states his only other medical concerns include some high cholesterol and some reflux disease. He states that he was previously on omeprazole for a month but that this was largely ineffective for his symptoms. He shares that the symptoms are primarily filled at night and do not occur but just a few times per month. Patient denies any history of changes to his bowel movements. He confirms that he experiences bowel movements 1-2 times per day without significant straining. He also denies any recent bleeding or dark stools. He has no prior history of colonoscopy. Mr. Blank has no family history of colon cancer, inflammatory bowel disease, or diverticulitis. Patient has no personal history of smoking. He also has no personal history of recurrent cutaneous infections including staph. Pertinent surgical history includes: No abdominal surgery ROS General General: No weight change, appetite, fatigue, colon cancer, breast cancer or weakness HEENT HEENT: No difficulty swallowing, eye injury, eye surgery, swollen glands or hoarseness Endo Endocrine: No thyroid disease, diabetes mellitus, thyroid cancer, Hair loss, heat intolerance or cold intolerance Skin Skin: No rash or changing moles Musc Musculoskeletal: No back problems, arthritis, rheumatoid arthritis, gout or joint pain Cardio Cardiovascular: No murmur, pacemaker, heart disease, atrial fibrillation, high blood pressure, heart attack, heart stent, palpitations, shortness of breat with exertion or chest pain Psych Psychiatric: No depression, anxiety or hearing voices Resp Respiratory: No shortness of breath, No sleep apnea, No cough, No COPD, No asthma, No emphysema and No wheezing Gastro Gastrointestinal: Yes abdominal pain, Yes nausea or vomiting, No diarrhea, No constipation, No blood in stool, Yes acid reflux, No hemorrhoids, No ulcers, No gallbladder problem and No black,tarry stools Ubaldo Hematologic: No blood thinners, No blood disorders, No bleeding, No anemia and No blood clots Neuro Neurologic: No system reviewed and no additional complaints, except as documented, No as per HPI, No abnormal gait, No abnormal hearing, No abnormal movements, No abnormal speech, No behavioral changes, No burning sensations, No confusion, No convulsions, No disequilibrium, No dizziness, No localized weakness, No frequent falls, No headache(s), No lack of coordination, No loss of vision, No memory loss, No numbness, No other visual disturbances, No radicular pain, No restless legs, No sensory deficit, No syncope, No tingling, No tremor(s), No weakness and No other Exam Const General: cooperative, healthy appearing, comfortable and no acute distress Nutritional Appearance: obese Orientation: alert, awake and oriented x3 Resp Effort & Inspection: normal respiratory effort GI Other: Obese, hirsute, nondistended, soft, nontender to palpation x 4 quadrants. Umbilicus is palpated and there is a shallow hernia defect containing fat that is nontender with palpation. Patient denies any tenderness with palpation over the groin areas while supine. Other: Testicles are present bilaterally within the scrotum. No hernia defect is palpable on the left. However, on the right I believe identify a indirect defect when patient is asked to cough and he has significantly more tenderness with exam of the side than left side. Assessment and Plan Assessment and Plan (1) Left flank pain: Status: Acute Comment: This is a 47-year-old male, with minimal past medical history, who presents for ER follow-up after a primary complaint of left flank pain. His workup in the emergency department did not reveal any proximal causes to his discomfort. In fact, he presents with findings of umbilical hernia and right inguinal hernia which both appear to be incidental findings. I did discuss with him that his CT imaging seems to suggest possible diverticulosis of the sigmoid colon and being that he has not previously undergone screening colonoscopy, I recommended he consider colonoscopy as a means of further investigating his left flank pain. He is receptive of this information and does wish to proceed as described. Plan: Plan will be to complete colonoscopy on first mutually agreeable date under local MAC. Pre-procedure prep discussed and paper instructions provided. Patient is also made aware that he will need to have a cmv driver with him the day of the procedure. (2) Umbilical hernia: Status: Acute Comment: Patient with rather incidental finding of umbilical hernia on recent CT imaging for above workup. Appears to be completely asymptomatic. He is nontender on exam. He does seem to have some element of chronically?incarcerated fat within the hernia. Assured that this is actually a protective finding against possible bowel involvement. Still, I have recommended he consider operative repair as I would be concerned this hernia would only grow in size and potentially be a greater risk for bowel involvement in the future. Plan: Watchful waiting for now, however, I have urged patient to consider possible operative repair with mesh given the size of the defect (approximately 2.5 cm) into his body habitus (3) Right inguinal hernia: Status: Acute Comment: Additional probable incidental finding of right inguinal hernia with workup for the above left flank pain. This is highly unlikely to explain patient's left flank pain. On exam this feels to be a indirect defect that is small in size. Patient appears to be asymptomatic from this finding. I have discussed with him the implications of the [facility] study and its follow-up report that concluded most patients will ultimately require operative intervention on the account of progressive pain symptoms. Thus, I have recommended that Mr. Denney continue to pursue an explanation for his left flank pain, but at some point plan for operative repair of this hernia as well as umbilical hernia. I have discussed with him that postoperative restrictions include no weight lifting more than 10 pounds for 5 weeks. All other questions were answered to his satisfaction and he confirms that he will give this some thought. Plan: Watchful waiting for now, but patient encouraged to consider offer for operative repair once he is able to electively arrange his life to accommodate postoperative restrictions I have examined the patient and the H&P has been reviewed. There are no clinical changes since date of exam. Patient reports that he has ongoing occasional abdominal discomfort, however, he denies any discomfort associated with this hernias. We have reviewed plans for today and we will plan to proceed with robot-assisted inguinal hernia repair with mesh as well as open umbilical hernia repair with mesh. Post procedure activity restrictions were reviewed and patient and his spouse had the opportunity ask questions. Will now proceed to the operating room for planned hernia repairs.
[2023-09-04] MEDS: Cefazolin 2 GM in 0.9% Normal Saline (100mL Bag) 100 ML IV (11:20)
[2023-09-04] MEDS: Bupivacaine Mpf 0.5% 30 ML VIAL (12:08)
[2023-09-04] MEDS: 0.9% Normal Saline (Pres. free 10 ML Vial (12:15)
[2023-09-04] MEDS: BUPIVACAINE LIPOSOME/PF 20 ML VIAL OPERA.SITE (12:15)
[2023-09-04] MEDS: Bupivacaine 0.25% 30 ML Vial (12:15)
--- NOTE | 2023-09-04 14:34 | OP.PCM_ITS ---
Report of Operation Date of Procedure: 09/04/23 Pre-Operative Diagnosis: 1. Right inguinal hernia 2. Umbilical hernia Post-Operative Diagnosis: 1. Right direct type inguinal hernia containing fat 2. Umbilical hernia (just under 2 cm in diameter) Surgery/Procedure Performed:: 1. Robot-assisted right inguinal hernia repair with mesh 2. Robot-assisted umbilical hernia repair with mesh 3. Transversus abdominis plane block Description of Surgical Findings:: ? Direct?type right inguinal hernia containing fat ? Small cord lipoma with associated preperitoneal fat ? Fat?incarcerated umbilical hernia Surgeon: Emery Breen senior underwriting assistant: Gavi Bustillos Type of Anesthesia: General/Supplemental Anesthesiologist: Ramakrishna Pantoja Specimen's removed: None Estimated Blood Loss (mL): 20 Description of Procedure: After appropriate identification in the preoperative holding area the patient was brought to the operating room where he was positioned supine on the operating table. Preoperative antibiotics were completed and the patient was administered a general anesthetic. Patient's abdomen was then prepped and draped in usual sterile fashion. Formal timeout followed to confirm patient and procedure. Procedure was begun with an optical entry facilitated by Veress insufflation at Ventura's point. Once pneumoperitoneum reached a set point pressure of 15 mmHg this needle was withdrawn and an optical entry was performed. Once laparoscopic visualization revealed no inadvertent injury to the viscera below, a right paramedian incision was made and a 8 mm robotic trocar was placed. Then a final robotic port was placed through a right lateral position. Each port placement followed instillation of local anesthetic to distend the peritoneum and create a local block. Patient was positioned in slight Trendelenburg and I visualized what appeared to be a direct hernia defect. There in the right lower quadrant I performed a local block of the ilioinguinal nerve using 3 mL local anesthetic under laparoscopic visualization. Next, in anticipation of repairing patient's umbilical hernia robotic trocars were placed through the left lateral abdominal wall under laparoscopic visualization, again after instilling local anesthetic. A total of 2 additional trocars were placed. Then, a bilateral transversus abdominis plane block was created using a cocktail of Exparel, saline, and bupivacaine and evenly measured aliquots along the linea semilunaris under laparoscopic guidance. The robot was docked in standard fashion for the inguinal hernia portion. Inspection revealed no evidence of hernia defect on the left, therefore, robotically, a peritoneal flap was created on the right extending from the medial umbilical ligament to the level of the ASIS (external) and was bluntly dissected to expose the medial parietal compartment and lateral visceral compartments. As this dissection proceeded, medially I could visualize the pubic tubercle and Josemanuel's ligament while laterally I extended the dissection down to the level of the psoas. Medially patient had evidence of a goddard mortise and laterally the peritoneum seem the most scarred to the psoas musculature as it did not easily separate despite careful traction. A hernia sac was identified medial to the inferior epigastric vessels and a fat plug was carefully removed from this opening as dissection proceeded inferiorly. A significant amount of fat was identified lateral to the patient's spermatic cord and as I took down the cremasteric fibers I identified a small cord lipoma resting atop some preperitoneal fat. Unfortunately the latter was only clarified after I grasped the entirety of the fat in this location and attempted to apply traction. The lipoma came away easily, but there was some oozing within the preperitoneal fat. This was rather diffuse in nature so I elected to place a Ray-Israel gauze into the abdomen and applied pressure. Fortunately this maneuver resulted in hemostasis rather quickly. Lastly, inspection was made for an indirect hernia defect but none was found. I did take time to develop the space of Retzius anterior to the bladder and ensure that cord was appropriately parietalized. There was no pulling rest he cord structures or the viscera deeply over the psoas using the pull test. Once satisfied, a Bard 3D max, size large, mid weight mesh was placed into the abdomen along with suture. It was positioned within the preperitoneal pocket so that there was good medial and inferior overlap. It was then tacked to the admuniculum of the linea alba (taking care to avoid the aberrant vasculature coursing across the pubis) just superior to the pubic tubercle and laterally in a partial-thickness bite of the abdominal wall using a 3-0 Vicryl suture. The peritoneal flap was then closed with a running 3-0 V-Loc suture taking care to conceal the barbs of the suture beneath the peritoneum. Once the flap closure was complete, I undertook repair a single peritoneal defect with 3-0 Vicryl in a [id number]-[id number] fashion. I then remove the needles and transition to the umbilical hernia repair. The robot was undocked, the boom reoriented, and then redocked from a lateral approach with our left upper quadrant trocar remaining consistent from the inguinal hernia repair. Robotically patient's hernia defect was inspected. There was significant preperitoneal fat and the actual defect did not appear large. Upon making this observation I elected to proceed with a limited preperitoneal approach. With downward traction the peritoneum was incised and I took down the preperitoneal fat pad in all directions and dissected towards the hernia. Upon reaching the hernia limited electrocautery was used to open up the scar tissue and reduce the hernia contents back into the peritoneum proper. This amounted to a small amount of incarcerated fat. Then the dissection was carried further across midline away from the robot by approximately 4 cm. A single perforating vessel was encountered inferior to the hernia and this resulted in some pulsatile bleeding that was promptly addressed with the application of bipolar energy. Satisfied with the extent of the dissection, the hernia defect was closed with a 6 inch #1 stratafix suture by running the fascial defect closed and then running the suture back upon itself. Next a 6.4 x 6.4 cm Ventralex mesh was introduced into the peritoneum (its tails having been sharply removed prior to placement) and a 3-0 V-Loc suture was used to approximate the mesh to the underside of the closed hernia in a running fashion about the periphery of the mesh. This resulted in a nice flat lie of the mesh against the anterior abdominal wall. Finally to minimize the opportunity for bowel contact with the mesh a 3 oh V-Loc suture was used to close the peritoneal opening used to start the dissection as well as a small opening overlying the area of the hernia. With these defects closed, the needles were removed from the peritoneum under laparoscopic visualization and pneumoperitoneum was released. The robot was then undocked and the trocars were removed. Additional local anesthetic was instilled and the port sites were closed with interrupted 4-0 Monocryl in subcuticular fashion. Steri-Strips and OpSite dressings were applied. Patient was transferred to PACU for ongoing care. Grafts/Implants Used: 3D max mid lot:[id number],ref:[id number] Ventralex ST ref:[id number] LOT:[id number] Complications None Admit VTE Documentation VTE Mechan Device Prophylaxis: SCD's
--- NOTE | 2023-09-04 14:39 | DCINST_ITS ---
Discharge Instructions Diet Discharge Diet: No restrictions Activity Discharge Activity: May Not Drive (While taking narcotic pain medication) and May Shower May shower in (days): 2 Ice area for (Minutes): 20 Lifting Restrictions: No lifting greater than 10 pounds for the next 5 weeks Dressing / Incision Call your doctor if your incision/area has: Continuous Slow Oozing, Increased Pain/ Swelling, Increased Redness, Foul Smelling Discharge and Swelling at the incision site Call your doctor if you observe: Fever of 101 or Higher, Inability to urinate and Inability to have a bowel movement Change Dressing in: 2 days (Please leave Steri-Strips intact until they fall off spontaneously or are taken off at your follow-up visit) Remove Dressing in: 2 days Cleanse incision/area with: Soap & Water and Keep Dressing Clean & Dry Follow Up Care Please Follow Up With: Emery Breen MD When: 1 week postop Test Results: Test results from this visit will be discussed in further detail at your follow- up appointment, if applicable. Discharge Plan Admission Primary Reason for Your Visit: 1. Repair of right inguinal hernia2. Repair of umbilical hernia Attending Provider: Emery Breen Primary Care Provider: Indy Stewart Discharge Orders/Prescriptions Prescriptions: New oxycodone 5 mg tablet 5 mg PO Q6H PRN (Reason: pain) 5 Days Qty: 14 0RF Continued sertraline 50 MG tablet 100 mg PO DAILY rosuvastatin 5 mg Tablet 5 mg PO DAILY Referrals / Follow Up: Indy Stewart MD [Primary Care Provider] - Disposition Disposition (needs filled in before D/C Order can be placed): Home, Self Care
--- NOTE | 2023-09-04 15:15 | SUR.PHASEI ---
iCE APPLIED TO ABD.
== END 2023-09-04 18:45 | disposition home or self-care (01) ==
LOC: SDC 09:34 → AC 09:34
PROVIDERS: PCP Family Medicine; Referring Provider Surgery; Visit Provider Surgery
PROC: (CPT 64488; principal; 2023-09-04 11:10)
DX: K40.90 Unilateral inguinal hernia, without obstruction or gangrene, not specified as recurrent (principal); K42.9 Umbilical hernia without obstruction or gangrene; D17.1 Benign lipomatous neoplasm of skin and subcutaneous tissue of trunk; K43.9 Ventral hernia without obstruction or gangrene; F32.A Depression, unspecified; K21.9 Gastro-esophageal reflux disease without esophagitis; E78.00 Pure hypercholesterolemia, unspecified
CPT/HCPCS: 64488; 55520; 49505; S2900; 49591; 00830; 87081; 93005; C1781; J7120; J2405; J3490